=== PATIENT | female | born 1990 | race Caucasian/White ===

== ENCOUNTER 2020-03-23 17:50 | Emergency (ER) | payer MEDICAID ==
[~2020-03-23] VITALS: Ht 162.6 cm; Wt 100.0 kg
[2020-03-23 17:50] VITALS: BP 110/58
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
[2020-03-23] MEDS ORDERED: MVI, ADULT NO.4 WITH VIT K 10 ML, FOLIC ACID INJ 1 MG, THIAMINE INJ 100 MG in IV RINGER... IV ONE ×4 (18:15)
--- NOTE | 2020-03-23 18:17 | EKG ---
[address] [address] Test Date: 2020-03-23 Test Time: 18:09:56 Pat Name: EBONY PRINCE Department: Room: Gender: F Network Control Operator: : [id number] Requested By: DAREN SILVERMAN Order Number: [id number] Reading MD: Ravi Ivey Measurements Intervals Talmo Rate: 113 P: 71 ME: 158 QRS: 79 QRSD: 94 T: 47 QT: 332 QTc: 461 Interpretive Statements SINUS TACHYCARDIA LEFT ATRIAL ABNORMALITY Electronically Signed On 03-24-2020 7:54:58 CDT by Ravi Ivey
== END 2020-03-23 20:10 | disposition left against medical advice (07) ==
LOC: ER 17:50
DX: T40.1X1A Poisoning by heroin, accidental (unintentional), initial encounter (principal); L53.8 Other specified erythematous conditions; F19.10 Other psychoactive substance abuse, uncomplicated; K02.9 Dental caries, unspecified; Z72.0 Tobacco use; Y92.89 Other specified places as the place of occurrence of the external cause
CPT/HCPCS: 93005; 99283

== ENCOUNTER 2020-05-30 13:06 | Emergency (ER) | payer MEDICAID ==
[~2020-05-30] VITALS: Ht 162.6 cm; Wt 58.7 kg
[2020-05-30] MEDS ORDERED: IV NORMAL SALINE 1,000ML 1,000 ML IV ONE (13:30)
[2020-05-30] MEDS ORDERED: KETOROLAC 30 MG/ML VIAL. IV ONE (13:30)
[2020-05-30] MEDS ORDERED: KETOROLAC 30 MG/ML VIAL. ONE (13:36)
[2020-05-30] MEDS ORDERED: IOHEXOL 300 MG/ML 75 ML VIAL. IV ONE (13:45)
[2020-05-30 14:05] LABS: BASO # 0.1 x10^3/uL (0.0-0.2); BASO % 1 % (0-3); EOS % 0 % (0-3); HEMATOCRIT 38.5 % (36.0-47.0); HEMOGLOBIN 12.5 g/dL (12.0-15.5); LYMPH # 2.3 x10^3/uL (1.0-4.8); LYMPH % 21 % (24-48); MEAN CORPUSCULAR HEMOGLOBIN 27 pg (25-35); MEAN CORPUSCULAR HGB CONC 32 g/dL (31-37); MEAN CORPUSCULAR VOLUME 82 fL (79-100); MONO # 1.2 x10^3/uL (0.0-1.1); MONO % 11 % (0-9); NEUT # 7.2 x10^3uL (1.8-7.7); NEUT % 67 % (31-73); PLATELET COUNT 291 x10^3/uL (140-400); RED BLOOD COUNT 4.71 x10^6/uL (3.50-5.40); RED CELL DISTRIBUTION WIDTH 16.9 % (11.5-14.5); WHITE BLOOD COUNT 10.8 x10^3/uL (4.0-11.0)
[2020-05-30 14:15] LABS: U PREG PATIENT NEGATIVE (NEG)
[2020-05-30 14:17] LABS: BARBITURATES NEG (NEG); BENZODIAZEPINES NEG (NEG); CANNABINOIDS NEG (NEG); COCAINE NEG (NEG); METHADONE NEG (NEG); OPIATES NEG (NEG); PHENCYCLIDINE NEG (NEG)
[2020-05-30 14:18] LABS: CALCIUM 8.7 mg/dL (8.5-10.1); CREATININE 0.8 mg/dL (0.6-1.0); GFR 83.1; POTASSIUM 3.1 mmol/L (3.5-5.1)
[2020-05-30 14:19] LABS: AMPHETAMINE/METHAMPHETAMINE POS (NEG)
[2020-05-30 14:22] LABS: BACTERIA,URINE 0 /HPF (0-FEW); BILIRUBIN,URINE NEG (NEG); CLARITY,URINE CLEAR; COLOR,URINE YELLOW; GLUCOSE,URINE NEG (NEG); NITRITE,URINE NEG (NEG); RBC,URINE 0 /HPF (0-2); SQUAMOUS EPITHELIAL CELL,UR FEW /LPF; UROBILINOGEN,URINE 0.2 mg/dL (0.2 mg/dL); YEAST,URINE PRESENT /HPF
[2020-05-30 14:28] LABS: ALBUMIN 3.5 g/dL (3.4-5.0); ALBUMIN/GLOBULIN RATIO 0.9 (1.0-1.7); TOTAL PROTEIN 7.5 g/dL (6.4-8.2)
[2020-05-30 14:30] LABS: TOTAL BILIRUBIN 2.5 mg/dL (0.2-1.0)
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
[2020-05-30 15:40] VITALS: BP 132/93
== END 2020-05-30 16:05 | disposition home or self-care (01) ==
LOC: ER 13:06
DX: S02.2XXA Fracture of nasal bones, initial encounter for closed fracture (principal); S20.211A Contusion of right front wall of thorax, initial encounter; K75.9 Inflammatory liver disease, unspecified; F17.210 Nicotine dependence, cigarettes, uncomplicated; F10.20 Alcohol dependence, uncomplicated; F15.10 Other stimulant abuse, uncomplicated; F11.10 Opioid abuse, uncomplicated; Y90.7 Blood alcohol level of 200-239 mg/100 ml; Y08.02XA Assault by strike by baseball bat, initial encounter; Y93.89 Activity, other specified; Y92.89 Other specified places as the place of occurrence of the external cause; Y99.8 Other external cause status
CPT/HCPCS: 36415; 70450; 70486; 71260; 74177; 80053; 80307; 81001; 81025; 85025; 86705; 86709; 86803; 87086; 87340; 96374; 99285; G0480; J1885; J7030; Q9967

== ENCOUNTER 2020-08-11 20:02 | Emergency (ER) | payer MEDICAID | END 2020-08-11 20:22 | disposition left against medical advice (07) | LOC: ER 20:02 | DX: T14.8XXA Other injury of unspecified body region, initial encounter (principal); Z53.21 Procedure and treatment not carried out due to patient leaving prior to being seen by health care provider; W54.0XXA Bitten by dog, initial encounter; Y93.89 Activity, other specified; Y92.89 Other specified places as the place of occurrence of the external cause; Y99.8 Other external cause status ==

== ENCOUNTER 2021-01-01 08:13 | Emergency (ER) | payer MEDICAID ==
[~2021-01-01] VITALS: Ht 162.6 cm; Wt 58.7 kg
[2021-01-01] MEDS ORDERED: ORPHENADRINE CITRATE 60 MG/2 ML VIAL. IM ONE (08:30)
[2021-01-01] MEDS ORDERED: KETOROLAC 60 MG/2 ML VIAL. IM ONE (08:30)
--- NOTE | 2021-01-01 08:42 | PHYS DOC ---
Past History Past Medical History: No Pertinent History, Alcoholism, Fibromyalgia, Other Additional Past Medical Histor: drug abuse Past Surgical History: No Surgical History, Tubal ligation, Other Additional Past Surgical Histo: oral Smoking: Cigarettes Alcohol Use: Heavy General Adult EDM: Chief Complaint: BACK PAIN OR INJURY HPI: HPI: Patient is a 30-year-old female currently. For referring worsening left back pain. Patient states she is having intermittent muscle spasms in her left side. Says she woke up with the pain has been getting gradually worse. Is taken Tylenol without improvement. Says her primary care office. Denies any injury, falls, or heavy lifting. Denies any recent illness, fevers, cough, vomiting or diarrhea. Patient denies any changes in urination or history of kidney stones. Denies a history of chronic back pain. Review of Systems: Review of Systems: All other systems within normal limits except for as noted in the HPI Current Medications: Current Meds: Current Medications Medications (Trade) Dose Ordered Sig/Rose Start Time Stop Time Status Last Admin Dose Admin Ketorolac Tromethamine (Toradol Im) 60 mg 1X ONCE 01/01/21 08:30 01/01/21 08:33 DC Orphenadrine Citrate (Norflex) 60 mg 1X ONCE 01/01/21 08:30 01/01/21 08:33 DC Allergies: Allergies: Allergies Coded Allergies Type Severity Reaction Last Updated Verified No Known Drug Allergies 05/30/20 No Physical Exam: PE: Constitutional: Well developed, well nourished, no acute distress, non-toxic appearance. [] HENT: Normocephalic, atraumatic, bilateral external ears normal, nose normal. [] Eyes: PERRLA, conjunctiva normal, no discharge. [] Neck: No rigidity, supple, no stridor. [] Cardiovascular: Regular rate and rhythm, brisk cap refill [] Lungs & Thorax: Non labored symmetric respirations, no tachypnea or respiratory distress [] Abdomen: Soft, nondistended. Skin: Warm, dry, no erythema, no rash. [] Back: No CVA tenderness, left upper back tenderness and muscle firmness over region of trapezius extending from the thoracic spine to base of neck. No spinal deformity or point tenderness. Extremities: No deformities, range of motion grossly intact, no lower extremity edema [] Neurologic: Alert and oriented X 3, no focal deficits noted. [] Psychologic: Affect normal, judgement normal, mood normal. [] Current Patient Data: Vital Signs: Vital Signs Date Time Temp Pulse Resp B/P (MAP) Pulse Ox O2 Delivery O2 Flow Rate FiO2 01/01/21 08:13 97.9 115 20 108/74 (85) 100 Room Air EKG: EKG: [] Radiology/Procedures: Radiology/Procedures: [] Heart Score: Risk Factors: Risk Factors: DM, Current or recent (<one month) smoker, HTN, HLP, family history of CAD, obesity. Risk Scores: Score 0 - 3: 2.5% MACE over next 6 weeks - Discharge Home Score 4 - 6: 20.3% MACE over next 6 weeks - Admit for Clinical Observation Score 7 - 10: 72.7% MACE over next 6 weeks - Early Invasive Strategies Course & Med Decision Making: Course & Med Decision Making Symptoms consistent with trapezius muscle spasm. [] Dragon Disclaimer: Dragon Disclaimer: This electronic medical record was generated, in whole or in part, using a voice recognition dictation system. Departure Departure: Impression: Primary Impression: Trapezius muscle spasm Disposition: 01 DC HOME SELF CARE/HOMELESS Condition: STABLE Referrals: MONALISA BAL MD (PCP) Patient Instructions: Back Pain, Adult Scripts Cyclobenzaprine Hcl (CYCLOBENZAPRINE HCL) 5 Mg Tablet 1 TAB PO TID PRN PRN for MUSCLE SPASMS for 5 Days, #15 TAB Prov: MARTHA MCKEON MD 01/01/21 Ibuprofen (IBUPROFEN) 800 Mg Tablet 1 TAB PO TID PRN for PAIN, #30 TAB Prov: MARTHA MCKEON MD 01/01/21 MARTHA MCKEON MD Jan 01, 2021 08:42
[2021-01-01 08:57] LABS: CALCIUM 8.7 mg/dL (8.5-10.1); CREATININE 0.8 mg/dL (0.6-1.0); GFR 83.1; POTASSIUM 3.9 mmol/L (3.5-5.1)
[2021-01-01 09:04] LABS: BACTERIA,URINE MOD /HPF (0-FEW); BILIRUBIN,URINE NEG (NEG); CLARITY,URINE HAZY; COLOR,URINE AMBER; GLUCOSE,URINE NEG (NEG); NITRITE,URINE NEG (NEG)
[2021-01-01 09:05] LABS: SQUAMOUS EPITHELIAL CELL,UR MANY /LPF
[2021-01-01] MEDS ORDERED: IBUP800T19 PO (09:22)
[2021-01-01] MEDS ORDERED: CYCL5TAB PO (09:22)
== END 2021-01-01 09:25 | disposition home or self-care (01) ==
LOC: ER 08:13
DX: M62.838 Other muscle spasm (principal); M54.9 Dorsalgia, unspecified; M79.7 Fibromyalgia; F17.210 Nicotine dependence, cigarettes, uncomplicated; Z98.51 Tubal ligation status; Z98.890 Other specified postprocedural states
CPT/HCPCS: 36415; 80048; 81001; 87086; 96372; 99284; J1885; J2360